=== PATIENT | female | born 1990 | race Two or more races ===

== ENCOUNTER 2018-07-09 05:49 | Emergency (ER) | payer BC ==
[~2018-07-09] VITALS: Ht 160 cm; Wt 69.4 kg
[2018-07-09 06:56] LABS: Urine Bacteria FEW /hpf (None Seen); Urine Blood 2+ /uL (Negative); Urine Specific Gravity 1.014 (1.001-1.035); Urine WBC 1206 /hpf (0 - 5); Urine WBC Clumps PRESENT /hpf (None Seen)
[2018-07-09 07:24] LABS: Basophils # (auto) 0.1 uL; Basophils % (auto) 0.5 % (0.0-2.0); Eosinophils # (auto) 0.1 uL; Eosinophils % (auto) 0.7 % (0.0-7.0); Hematocrit 43.7 % (36.0-46.0); Hemoglobin 14.8 g/dL (12.2-16.2); Lymphocytes % (auto) 20.7 % (10.0-50.0); Mean Corpuscular Hemoglobin 30.4 pg (28.0-32.0); Mean Corpuscular Hgb Conc. 33.8 g/dL (32.0-36.0); Mean Corpuscular Volume 90.1 fL (80.0-100.0); Monocytes # (auto) 0.5 uL; Neutrophils % (auto) 73.1 % (37.0-80.0); Nucleated Red Blood Cells % 0.1 %; Platelet Count (auto) 279 10^3/uL (140-450); Red Blood Cells 4.85 10^6/uL (4.0-5.20); Red Cell Distribution Width 13.6 % (11.8-14.3); White Blood Cell 9.6 10^3/uL (4.4-10.8)
[2018-07-09 07:35] LABS: Albumin 4.2 g/dL (3.4-5.0); Calcium 8.8 mg/dL (8.5-10.1); Potassium 3.9 mmol/L (3.5-5.1)
[2018-07-09 07:38] LABS: BUN/Creatinine Ratio 9.6; Bilirubin, Total 0.5 mg/dL (0.2-1.0); Total Protein 7.9 g/dL (6.4-8.2)
[2018-07-09] MEDS: cefTRIAXone SOD 1,000 MG VL IM ONE (08:47)
[2018-07-09 10:19] VITALS: BP 95/65
== END 2018-07-09 10:32 | disposition home or self-care (01) ==
LOC: ER 05:52 → EDBD 05:52 → ER 10:32
DX: N39.0 Urinary tract infection, site not specified (principal)
CPT/HCPCS: 36415; 72192; 80053; 81001; 84702; 85025; 96372; 99284; J0696